=== PATIENT | male | born 1985 | race Caucasian/White ===

== ENCOUNTER 2020-03-25 09:41 | Inpatient (IN) | payer OTHER ==
[~2020-03-25] VITALS: Ht 170.2 cm; Wt 83.9 kg
--- NOTE | 2020-03-25 00:47 | NUR ---
DUE MEDS GIVEN, NO COMPLAINTS PRESENTED.SLEPT ON AND OFF.LEFT ELBOW ELEVATED ON PILLOW.
--- NOTE | 2020-03-25 10:56 | NUR ---
Awaiting SW, will be here around 1200
--- NOTE | 2020-03-25 12:35 | NUR ---
Pt c/o stomach cramping due to not having his methadone today.
[2020-03-25] MEDS ORDERED: VANC1PIG IV (12:41)
[2020-03-25] MEDS ORDERED: METHADONE HCL 10 MG TABLET PO SCH (13:00)
--- NOTE | 2020-03-25 13:03 | NUR ---
Pt had eloped from SNF/rehab center on Sunday night, there for IV a/bx (Vancomycin) S/P I&D left elbow abscess. Pt has right upper arm PICC line, still in place from his previous treatments -- Port was sealed under transparent dressing, patent.
[2020-03-25] MEDS ORDERED: SERT100T PO (13:17)
[2020-03-25] MEDS ORDERED: TRAZ-257 PO (13:17)
[2020-03-25] MEDS ORDERED: GABA600T12 PO (13:17)
--- NOTE | 2020-03-25 13:19 | NUR ---
Per pharmacy, they can not start methadone until info verified from pt's clinic. Need to fax signed HIPPA release form to clinic first.
[2020-03-25 13:23] LABS: CARBON DIOXIDE 25 mmol/L (21-32); CHLORIDE 100 mmol/L (98-107); CREATININE 0.6 mg/dL (0.6-1.3); GLUCOSE 118 mg/dL (74-106); POTASSIUM 3.9 mmol/L (3.5-5.1); UREA NITROGEN, BLOOD 14 mg/dL (7-18)
--- NOTE | 2020-03-25 13:29 | NUR ---
Called report to WEND[facility] Hameed.
[2020-03-25] MEDS ORDERED: CLONIDINE HCL 0.1 MG TABLET PO ONE (13:30)
[2020-03-25 13:33] LABS: BASOPHILS % (AUTO) 0.2 % (0.0-2.0); EOSINOPHILS # (AUTO) 0.1 K/uL (0.0-0.7); HEMATOCRIT 34.9 % (36.7-47.1); HEMOGLOBIN 11.9 g/dL (12.5-16.3); LYMPHOCYTES # (AUTO) 0.7 K/uL (20.0-40.0); LYMPHOCYTES % (AUTO) 9.6 % (20.5-51.5); MEAN CORPUSCULAR HEMOGLOBIN 31.5 uug (23.8-33.4); MEAN CORPUSCULAR HGB CONC 34 g/dL (32.5-36.3); MEAN CORPUSCULAR VOLUME 92.6 fL (73.0-96.2); MONOCYTES # (AUTO) 0.5 K/uL (2.0-10.0); MONOCYTES % (AUTO) 6.5 % (0.0-11.0); NEUTROPHILS # (AUTO) 5.9 K/uL (1.8-8.9); NEUTROPHILS % (AUTO) 82.7 % (38.5-71.5); PLATELET COUNT (AUTO) 227 K/uL (152-348); RED BLOOD CELL COUNT(AUTO) 3.77 MIL/uL (4.06-5.63); WHITE BLOOD COUNT (AUTO) 7.2 K/uL (3.6-10.2)
[2020-03-25] MEDS ORDERED: CLONIDINE HCL 0.1 MG TABLET ONE (13:40)
[2020-03-25 14:00] VITALS: BP 136/88
[2020-03-25] MEDS ORDERED: HYDROCODONE/APAP 5-325MG TABLET PO PRN (15:30)
[2020-03-25] MEDS ORDERED: ACETAMINOPHEN 325 MG TABLET PO PRN (15:30)
[2020-03-25] MEDS ORDERED: ONDANSETRON 4 MG/2 ML VIAL IV PRN (15:30)
--- NOTE | 2020-03-25 15:30 | NUR ---
SPOKE TO PHARMACIST REGARDING PATIENT'S METHADONE MEDICATION. INFORMATION RELEASE PAPER SIGNED BY PATIENT AND FAXED TO PHARMACY.
[2020-03-25 16:17] VITALS: BP 133/87
[2020-03-25] MEDS: VANCOMYCIN IV 1,000 MG in IV DEXTROSE 5% 250 ML IV SCH (16:17)
--- NOTE | 2020-03-25 16:42 | NUR ---
PATIENT RECEIVED FROM ER AT 1400. PATIENT AOX4. VSS. SINGLE LUMEN PICC LINE ON RIGHT UPPER ARM FLUSHED AND PATENT. IV FLUIDS STARTED ORDERED. PICC LINE DRESSING CHANGED. NO S/S OF BLEEDING OR PURULENT EXUDATE NOTED. BELONGINGS AT BEDSIDE, INVENTORY DONE. CONTRABAND PLACED IN LOCKER FOR SAFE KEEPING. SAFETY PRECAUTIONS IN PLACE. NEEDS MET AT THIS TIME. WILL CONTINUE TO MONITOR.
[2020-03-25] MEDS: IV 1/2NS 1000 ML 1,000 ML IV PRN (16:58)
[2020-03-25] MEDS: TRAZODONE 100 MG TABLET PO SCH (17:42)
[2020-03-25] MEDS ORDERED: PIPERACILLIN SODIUM/TAZOBACTAM 3.375 G in IV DEXTROSE 5% 50 ML IV ONE (18:00)
--- NOTE | 2020-03-25 19:00 | NUR ---
RECD PT IN BED, ALERT ORIENTEDX4, NO ACUTE DISTRESS NOTED, IVF INFUSING WELL.VOIDED FREELY WELL. NO COMPLAINTS PRESENTED.
[2020-03-25 20:00] VITALS: BP 127/80
[2020-03-25] MEDS: DOCUSATE SODIUM 100 MG CAPSULE PO SCH (21:14)
[2020-03-25] MEDS: GABAPENTIN 300 MG CAPSULE PO SCH (21:14)
[2020-03-26] MEDS: PIPERACILLIN SODIUM/TAZOBACTAM 3.37 G in IV DEXTROSE 5% 100 ML IV SCH ×2 (00:09→07:41)
[2020-03-26] MEDS: VANCOMYCIN IV 1,000 MG in IV DEXTROSE 5% 250 ML IV SCH ×2 (01:16→09:59)
[2020-03-26 04:00] VITALS: BP 126/75
[2020-03-26] MEDS: PANTOPRAZOLE SODIUM 40 MG TABLET.DR PO SCH (06:34)
[2020-03-26 07:00] LABS: BASOPHILS % (AUTO) 0.6 % (0.0-2.0); EOSINOPHILS # (AUTO) 0.1 K/uL (0.0-0.7); EOSINOPHILS % (AUTO) 2.4 % (0.0-7.0); HEMATOCRIT 36.9 % (36.7-47.1); HEMOGLOBIN 12.8 g/dL (12.5-16.3); LYMPHOCYTES # (AUTO) 1.4 K/uL (20.0-40.0); LYMPHOCYTES % (AUTO) 26.8 % (20.5-51.5); MEAN CORPUSCULAR HEMOGLOBIN 32.2 uug (23.8-33.4); MEAN CORPUSCULAR HGB CONC 35 g/dL (32.5-36.3); MEAN CORPUSCULAR VOLUME 92.8 fL (73.0-96.2); MONOCYTES # (AUTO) 0.6 K/uL (2.0-10.0); MONOCYTES % (AUTO) 11.8 % (0.0-11.0); NEUTROPHILS # (AUTO) 3.1 K/uL (1.8-8.9); NEUTROPHILS % (AUTO) 58.4 % (38.5-71.5); PLATELET COUNT (AUTO) 232 K/uL (152-348); RED BLOOD CELL COUNT(AUTO) 3.98 MIL/uL (4.06-5.63); WHITE BLOOD COUNT (AUTO) 5.2 K/uL (3.6-10.2)
[2020-03-26] MEDS ORDERED: MORPHINE SULFATE 4 MG/1 ML DISP.SYRIN IV PRN (07:30)
[2020-03-26 07:38] LABS: BILIRUBIN,TOTAL 0.7 mg/dL (0.2-1.0); CREATININE 0.7 mg/dL (0.6-1.3); MAGNESIUM 2.3 mg/dL (1.8-2.4); PHOSPHOROUS 3.7 mg/dL (2.5-4.9); POTASSIUM 3.3 mmol/L (3.5-5.1); TOTAL PROTEIN, SERUM 7.2 g/dL (6.4-8.2)
--- NOTE | 2020-03-26 07:45 | NUR ---
FOLLOWED UP WITH PHARMACY REGARDING METHADONE PRESCRIPTION. PHARMACY FAXED INFORMATION RELEASE PAPER AND WILL FOLLOW UP WITH CLINIC.
--- NOTE | 2020-03-26 08:04 | NUR ---
HAD A QUIET NOC,SLEPT WELL,PICC LINE PATENT AND INTACT.
[2020-03-26] MEDS: GABAPENTIN 300 MG CAPSULE PO SCH ×2 (08:36→20:31)
[2020-03-26] MEDS: SERTRALINE HCL 100 MG TABLET PO SCH (08:36)
[2020-03-26] MEDS ORDERED: METHADONE HCL 10 MG TABLET PO SCH (09:00)
[2020-03-26] MEDS ORDERED: POTASSIUM CHLORIDE 20 MEQ TAB.PRT.SR PO ONE (09:15)
[2020-03-26] MEDS: IV 1/2NS 1000 ML 1,000 ML IV PRN (10:33)
[2020-03-26 12:00] VITALS: BP 118/72
[2020-03-26] MEDS: PIPERACILLIN SODIUM/TAZOBACTAM 3.375 G in IV DEXTROSE 5% 50 ML IV SCH ×2 (15:18→20:31)
[2020-03-26 16:00] VITALS: BP 125/72
--- NOTE | 2020-03-26 17:00 | NUR ---
PATIENT COMPLAINED OF PAIN. GIVEN PRN PAIN MEDICATION ORDERED. WILL CONTINUE TO MONITOR.
[2020-03-26] MEDS: VANCOMYCIN IV 1,250 MG in IV DEXTROSE 5% 250 ML IV SCH (17:02)
[2020-03-26] MEDS: MORPHINE SULFATE 2 MG/1 ML DISP.SYRIN IV PRN (17:14)
[2020-03-26] MEDS: TRAZODONE 100 MG TABLET PO SCH (17:35)
--- NOTE | 2020-03-26 18:31 | NUR ---
PATIENT AAOX4. SLEPT INTERMITTENTLY THROUGHOUT THE DAY. VSS. MEDICATION GIVEN ORDERED. SAFETY PRECAUTIONS IN PLACE. ALL NEEDS MET.
[2020-03-26 20:24] VITALS: BP 114/73
[2020-03-26] MEDS: DOCUSATE SODIUM 100 MG CAPSULE PO SCH (20:31)
[2020-03-27] MEDS: VANCOMYCIN IV 1,250 MG in IV DEXTROSE 5% 250 ML IV SCH ×3 (01:17→16:49)
[2020-03-27] MEDS: PIPERACILLIN SODIUM/TAZOBACTAM 3.375 G in IV DEXTROSE 5% 50 ML IV SCH ×4 (03:13→21:11)
[2020-03-27] MEDS: IV 1/2NS 1000 ML 1,000 ML IV PRN ×2 (04:00→22:51)
[2020-03-27 05:38] VITALS: BP 131/64
[2020-03-27] MEDS: PANTOPRAZOLE SODIUM 40 MG TABLET.DR PO SCH (06:26)
--- NOTE | 2020-03-27 06:27 | NUR ---
Pt rested well in between care; no acute distress; refused po med; CT refused last night but agreed to do this AM. safety maintained; continue to monitor.
[2020-03-27 07:25] LABS: CREATININE 0.8 mg/dL (0.6-1.3); POTASSIUM 3.5 mmol/L (3.5-5.1)
[2020-03-27] MEDS: MORPHINE SULFATE 2 MG/1 ML DISP.SYRIN IV PRN ×2 (08:37→14:34)
[2020-03-27] MEDS: GABAPENTIN 300 MG CAPSULE PO SCH ×2 (09:32→21:10)
[2020-03-27] MEDS: SERTRALINE HCL 100 MG TABLET PO SCH (09:33)
[2020-03-27 11:39] VITALS: BP 113/69
[2020-03-27 16:00] VITALS: BP 107/64
[2020-03-27] MEDS: TRAZODONE 100 MG TABLET PO SCH (17:34)
--- NOTE | 2020-03-27 18:00 | NUR ---
pt calm and cooperative, he had complain of pain twice on this shift due to back pain, administered PRN pain med as ordered. pt continue with ATB therapy as ordered. voided freely. patient stated that he called the center where he get his Methadone, he stated that the center will call the hospital by Sunday since today is weekend. will continue to monitor
[2020-03-27 20:56] VITALS: BP 128/67
[2020-03-27] MEDS: DOCUSATE SODIUM 100 MG CAPSULE PO SCH (21:10)
--- NOTE | 2020-03-27 22:16 | NUR ---
Received pt resting in bed. AAO x4. No acute distress noted. Denies pain/ discomfort. Due meds given as ordered. Dr. Vasquez made rounds and seen pt. Right upper arm PICC line, patent and intact. Safety measures maintained. Call light and personal items within reach. Will continue to monitor.
[2020-03-28] MEDS: PIPERACILLIN SODIUM/TAZOBACTAM 3.375 G in IV DEXTROSE 5% 50 ML IV SCH ×5 (02:17→22:32)
[2020-03-28 04:38] VITALS: BP 119/79
[2020-03-28] MEDS: PANTOPRAZOLE SODIUM 40 MG TABLET.DR PO SCH (06:03)
[2020-03-28 07:09] LABS: POTASSIUM 3.7 mmol/L (3.5-5.1); VANCOMYCIN,TROUGH 5.1 ug/mL (12.0-20.0)
[2020-03-28] MEDS: SERTRALINE HCL 100 MG TABLET PO SCH (08:28)
[2020-03-28] MEDS: VANCOMYCIN IV 1,250 MG in IV DEXTROSE 5% 250 ML IV SCH ×2 (08:28→20:11)
--- NOTE | 2020-03-28 08:28 | NUR ---
VANCO TROUGH IS 5.1 VANCOMICIN 1250MG GIVEN ORDERED WITH NO ADVERSE OR ALLERGIC REACTIONS AT THIS TIME PATIENT IS ALERT AND ORIENTED IVF REMAINS IN PROGRESS ORDERED WITH NO S/S OF INFILTERATION PATIENT HAS A PICC LINE INTACT TO HIS RIGHT UPPER ARM WITH NO S/S OF INFILTERATION AT THIS TIME LEFT ELBOW WITH EDEMA WITH SLIGHT REDNESS BUT NO DRAINAGE AT THIS TIME CALL LIGHTS AND PERSONAL BELONGINGS ARE WITHIN EASY REACH WILL CONTINUE TO OBSERVE.
[2020-03-28] MEDS: GABAPENTIN 300 MG CAPSULE PO SCH ×2 (08:32→20:13)
[2020-03-28] MEDS: MORPHINE SULFATE 2 MG/1 ML DISP.SYRIN IV PRN ×2 (09:17→15:53)
--- NOTE | 2020-03-28 09:17 | NUR ---
STATED HAS PAIN LEFT ELBOW MEDICATED WITH MORPHINE ORDERED MADE COMFORTABLE WILL CONTINUE TO OBSERVE.
[2020-03-28 12:44] VITALS: BP 109/65
[2020-03-28] MEDS: TRAZODONE 100 MG TABLET PO SCH (17:04)
[2020-03-28] MEDS: IV 1/2NS 1000 ML 1,000 ML IV PRN (17:17)
--- NOTE | 2020-03-28 17:31 | NUR ---
PATIENT SEEN BY DR HENRY WITH NEW ORDER AND NOTED.
[2020-03-28] MEDS: ACIDOPHILUS/BULGARICUS CHEW TAB PO SCH (20:13)
[2020-03-28] MEDS: DOCUSATE SODIUM 100 MG CAPSULE PO SCH (20:14)
--- NOTE | 2020-03-28 21:40 | NUR ---
Received pt resting in bed. AAO x4. No acute distress noted. Denies pain/ discomfort. Due meds given as ordered. Right upper arm PICC line patent and intact, IVF running. Safety measures maintained. Call light and personal items within reach. Will continue to monitor.
[2020-03-28 21:54] VITALS: BP 126/71
[2020-03-29] MEDS: PIPERACILLIN SODIUM/TAZOBACTAM 3.375 G in IV DEXTROSE 5% 50 ML IV SCH ×3 (03:41→14:26)
[2020-03-29] MEDS: PANTOPRAZOLE SODIUM 40 MG TABLET.DR PO SCH (06:02)
[2020-03-29] MEDS: MORPHINE SULFATE 2 MG/1 ML DISP.SYRIN IV PRN (06:07)
[2020-03-29 06:14] VITALS: BP 127/84
[2020-03-29 07:38] LABS: CREATININE 1.2 mg/dL (0.6-1.3); POTASSIUM 3.6 mmol/L (3.5-5.1)
[2020-03-29] MEDS: GABAPENTIN 300 MG CAPSULE PO SCH (08:45)
[2020-03-29] MEDS: ACIDOPHILUS/BULGARICUS CHEW TAB PO SCH (08:45)
[2020-03-29] MEDS: SERTRALINE HCL 100 MG TABLET PO SCH (08:45)
[2020-03-29] MEDS: VANCOMYCIN IV 1,250 MG in IV DEXTROSE 5% 250 ML IV SCH (09:20)
[2020-03-29] MEDS: IV 1/2NS 1000 ML 1,000 ML IV PRN (09:21)
[2020-03-29 12:00] VITALS: BP 122/82
[2020-03-29] MEDS: MORPHINE SULFATE 4 MG/1 ML DISP.SYRIN IV PRN ×2 (12:41→17:19)
[2020-03-29 16:00] VITALS: BP 124/72
--- NOTE | 2020-03-29 16:02 | NUR ---
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
--- NOTE | 2020-03-29 16:44 | NUR ---
MANAGER PHARMACEUTICAL CALLED AND SPOKE WITH PATIENT AND AFTER THE CONVERSATION THE PATIENT STATED WILL GO THE [facility] IF HE IS CONTINUING ON IV ATB BUT IF HE WILL START ON ORAL ATB WILL NOT GO TO CP[facility] AWAITING FOR DR HENRY TO PUT IN DISCHARGE ORDERS AND WHAT MEDICATIONS PATIENT WILL BE DISCHARGED ON.
[2020-03-29] MEDS ORDERED: ACET325T53 PO (16:54)
[2020-03-29] MEDS ORDERED: VANC1.5P10 IV (16:54)
[2020-03-29] MEDS ORDERED: HYDR-3980 PO (16:54)
[2020-03-29] MEDS ORDERED: Gabapentin PO (16:54)
[2020-03-29] MEDS ORDERED: ACID1TAB4 PO (16:54)
--- NOTE | 2020-03-29 17:15 | NUR ---
PATIENT WILL CONTINUE ON IV ATB AND SO HE WILL BE DISCHARGED TO [facility] TODAY AND PATIENT ACCEPTS.
[2020-03-29] MEDS: TRAZODONE 100 MG TABLET PO SCH (17:17)
--- NOTE | 2020-03-29 18:00 | NUR ---
CALLED [facility] TO GIVE REPORT 2 TIMES WAS PLACED ON HOLD MORE THAN 15 MINUTES EACH TIME SO UNABLE TO GIVE REPORT AT THIS TIME PATIENT AWARE THAT HE IS GOING TO [facility] TO CONTINUE HIS IV ANTIBIOTICS FOR ONE MORE WEEK AND HE EXPRESSED UNDERSTANDING AND SIGNED HIS DISCHARGE PAPERS.PICC LINE FLUSHED ALL HIS PERSONAL BELONGINGS ACCOUNTED FOR AT THIS TIME AWAITING FOR CORRECTIONAL NURSE BY THE CAR TRANSPORT.
--- NOTE | 2020-03-29 19:09 | NUR ---
T AMBULANCE HERE AND PATIENT DISCHARGED TO [facility] IN SATISFACTORY CONDITION WITH ALL HIS PERSONAL BELONGINGS.
== END 2020-03-29 19:10 | DRG 351 ==
LOC: ER 09:41 → MEDSURG3 13:45
PROVIDERS: ADMIT Internal Medicine; ATTEND Internal Medicine
DX: M70.22 Olecranon bursitis, left elbow (principal); L03.114 Cellulitis of left upper limb; Z91.14 Patient's other noncompliance with medication regimen; E87.6 Hypokalemia; Z20.822 Contact with and (suspected) exposure to COVID-19; D64.9 Anemia, unspecified; R73.9 Hyperglycemia, unspecified; F11.11 Opioid abuse, in remission
CPT/HCPCS: 36415; 73200; 83735; 84100; 85025; 85651; 86140; A4663; G0378; J2270; J2543; J3370; J3490; J7030; J7060

== ENCOUNTER 2023-03-31 21:16 | Emergency (ER) | payer OTHER ==
[~2023-03-31] VITALS: Ht 175.3 cm; Wt 72.6 kg
[~2023-03-31 21:16] MED LIST: ACET325T53 PO; ACID1TAB4 PO; Gabapentin PO; HYDR-3980 PO; SERT100T PO; TRAZ-257 PO; VANC1.5P10 IV
[2023-03-31 22:44] VITALS: BP 150/89; TEMP 97.9; O2SAT 100
== END 2023-03-31 22:45 | disposition home or self-care (01) ==
LOC: ER 21:18
DX: M21.331 Wrist drop, right wrist (principal); G56.31 Lesion of radial nerve, right upper limb; R03.0 Elevated blood-pressure reading, without diagnosis of hypertension; J40 Bronchitis, not specified as acute or chronic; Z79.899 Other long term (current) drug therapy
CPT/HCPCS: A4606; A4663